=== PATIENT | female | born 1940 | race Caucasian/White ===

== ENCOUNTER → 2019-05-20 13:29 | Outpatient (CLI) | payer MEDICARE, SELFPAY ==
--- NOTE | ~2019-05-20 | XR_ITS ---
XR chest 2V DATE: 05/20/2019 13:47 INDICATION: Cough. Shortness of breath. TECHNIQUE: PA and lateral views COMPARISON: 03/07/2017 two view chest FINDINGS: Status post sternotomy. Normal heart size. Aortic calcification. No hilar or mediastinal mass lesion or lymphadenopathy. No pulmonary infiltrate or consolidation, pulmonary vascular congestion or pleural effusion or pneumo thorax. Surgical clips, right upper quadrant, consistent with cholecystectomy. Diffuse osteopenia. IMPRESSION: No active cardiopulmonary disease Reviewed, dictated and finalized at location B.
== END ==
PROVIDERS: PCP Family Medicine; Visit Provider Physician Assistant
DX: R05 Cough (principal); R06.02 Shortness of breath
CPT/HCPCS: 71046

== ENCOUNTER 2020-04-09 10:56 | Emergency (ER) | payer MEDICARE, SELFPAY ==
[2020-04-09 11:13] VITALS: BP 142/74; PULSE 79; RESP 18; TEMP 36.6; O2SAT 99
--- NOTE | 2020-04-09 13:28 | ED.EPISTAXIS ---
HPI - Epistaxis General Chief complaint: Epistaxis Stated complaint: nosebleed Time Seen by Provider: 04/09/20 12:45 Source: patient Mode of arrival: ambulatory Limitations: no limitations History of Present Illness HPI Narrative: Patient is a 79 year old female who presents for evaluation of epistaxis. She developed bleeding from her left nostril this morning at 8 am after blowing her nose. She has a distant history of epistaxis in the past in which she required cauterization. She takes aspirin 81 mg and plavix. She was just started on plavix last week after having a pacemaker placed and a TAVR. Related Data Home Medications Medication Instructions Recorded Confirmed albuterol sulfate 90 mcg/actuation 1 puff INHALATION Q4H PRN 05/09/19 05/20/19 aerosol inhaler aspirin 81 mg tablet,delayed 81 mg PO DAILY 05/09/19 05/20/19 release atorvastatin 40 mg tablet 40 mg PO DAILY 05/09/19 05/20/19 bimatoprost 0.01 % eye drops 1 drop EACH EYE QPM 05/09/19 05/20/19 calcium carbonate 500 mg calcium 500 mg PO DAILY 05/09/19 05/20/19 (1,250 mg) tablet cholecalciferol (vitamin D3) 125 5,000 unit PO DAILY 05/09/19 05/20/19 mcg (5,000 unit) capsule fluticasone 250 mcg-salmeterol 50 1 inhalation INHALATION BID 05/09/19 05/20/19 mcg/dose blistr powdr for inhalation folic acid 400 mcg tablet 0.4 mg PO DAILY 05/09/19 05/20/19 ipratropium 0.5 mg-albuterol 3 mg 3 ml INHALATION 6XD PRN ml 05/09/19 05/20/19 (2.5 mg base)/3 mL nebulization soln isosorbide mononitrate 60 mg 60 mg PO DAILY 05/09/19 05/20/19 tablet,extended release 24 hr montelukast 10 mg tablet 10 mg PO DAILY 05/09/19 05/20/19 ranolazine 1,000 mg 1,000 mg PO Q12H 05/09/19 05/20/19 tablet,extended release,12 hr umeclidinium 62.5 mcg/actuation 1 inhalation INHALATION DAILY 05/09/19 05/20/19 blister powder for inhalation brimonidine 0.1 % eye drops 1 drop EACH EYE Q12H ml 05/20/19 05/20/19 Allergies Allergy/AdvReac Type Severity Reaction Status Date / Time finasteride Allergy Unknown Unknown Verified 04/09/20 11:18 morphine Allergy Unknown Itching Verified 04/09/20 11:18 nifedipine Allergy Unknown Unknown Verified 04/09/20 11:18 phenylephrine Allergy Unknown Unknown Verified 04/09/20 11:18 prednisone Allergy Unknown Hives Verified 04/09/20 11:18 erythromycin base AdvReac Unknown Nausea And Verified 04/09/20 11:18 Vomiting Review of Systems Review of Systems: All systems reviewed & are unremarkable except as noted in HPI and below PMFSH Past Medical History Medical History (Updated 04/09/20 @ 14:59 by Karon Meredith MD) Breast pain, left Left breast mass Surgical History Surgical History History of appendectomy History of cholecystectomy S/P CABG (coronary artery bypass graft) Family History Family History Mother Hypertension Family history of Alzheimer's disease Sibling Hypertension Asthma Father Family history of lung cancer Social History Social History Smoking packs per day: 1.5 Smoking cigarettes per day: 30.0 Years smoked: 25 Smoking pack-years: 37.50 Smoking status: Former smoker Second hand tobacco smoke exposure: Yes Smoking end date: 03/12/94 Alcohol intake: current Substance use: never Substance use type: does not use Gender identity (if verbalized by the patient): Female Exam Const: General: no acute distress and alert Orientation/consciousness: patient oriented x3 HENMT: Head: normocephalic and atraumatic General nose exam: Other nasal findings present (bright red blood in left anterior nare, appears clear posteriorly) Face and sinus: face symmetric Mouth: Yes lip normal and Yes moist mucous membranes Eyes: EOM: EOMs intact bilaterally Chest: Other: bandage to right anterior chest, no bleeding Resp:
--- NOTE | 2020-04-09 13:33 | PC.NURSE ---
pt. does not have med list, does not know meds
[2020-04-09] MEDS: SILVER NITRATE (*SP) STICK 1 EACH TOPICAL (13:40)
[2020-04-09 13:43] LABS: Basophils Absolute Auto 0.1 K/mm3 (0.0-0.1); Basophils Percent Auto 0.4 % (0.2-1.2); Eosinophils Absolute Auto 0.3 K/mm3 (0-0.3); Eosinophils Percent Auto 2.2 % (0-4.4); Hematocrit 39.1 % (37.0-47.0); Hemoglobin 12.7 g/dL (12.0-15.0); Immature Granulocyte Absolute 0.11 K/mm3 (0.00-0.031); Immature Granulocyte Percent A 0.8 % (0-0.5); Lymphocytes Absolute Auto 1.85 K/mm3 (0.9-3.2); Lymphocytes Percent Auto 14.1 % (18.3-44.2); Mean Corpuscular HGB Conc 32.5 g/dl (32-36); Mean Corpuscular Hemoglobin 29.9 pg (26-34); Mean Platelet Volume 10.3 fl (7.4-10.4); Monocytes Percent Auto 7.8 % (2.6-8.5); Neutrophils Absolute Auto 9.8 K/mm3 (1.3-6.7); Neutrophils Percent Auto 74.7 % (45.5-73.1); Platelet Count Result 248 k/mm3 (150-375); Red Blood Count 4.25 M/mm3 (4.2-5.4); Red Cell Distribution Width 12.6 % (11.5-14.5); White Blood Count 13.1 K/mm3 (4.5-10.0)
[2020-04-09 13:57] LABS: INR 1.1; Prothrombin Time 14.4 Seconds (11.1-14.7)
[2020-04-09 13:58] LABS: Anion Gap 4 mmol/L (8-16); Blood Urea Nitrogen 16 mg/dL (7-17); Calcium 9.8 mg/dL (8.4-10.2); Carbon Dioxide 30 mmol/L (22-30); Chloride 104 mmol/L (98-107); Estimated CRCL calculation 36 ml/min; Estimated Glomerular Filt Rate > 60; Glucose 115 mg/dL (65-105); Potassium 4.7 mmol/L (3.4-5.0); Sodium 138 mmol/L (137-145)
[2020-04-09 13:58] LABS: Partial Thromboplastin Time 32.8 SECONDS (22.3-36.8)
[2020-04-09 15:26] VITALS: BP 138/88; PULSE 78; RESP 16
== END 2020-04-09 15:28 | disposition home or self-care (01) ==
PROVIDERS: Emergency Provider General Practice; Family Provider Family Medicine; PCP Family Medicine
DX: R04.0 Epistaxis (principal); I25.10 Atherosclerotic heart disease of native coronary artery without angina pectoris; Z95.0 Presence of cardiac pacemaker; Z95.1 Presence of aortocoronary bypass graft; Z79.02 Long term (current) use of antithrombotics/antiplatelets; Z79.82 Long term (current) use of aspirin; Z87.891 Personal history of nicotine dependence
CPT/HCPCS: 36415; 80048; 85025; 85610; 85730; 99283

== ENCOUNTER 2020-05-04 19:59 | Inpatient (IN) | payer MEDICARE, SELFPAY ==
[2020-05-04] VITALS (9 sets, daily range): BP systolic 110–145; BP diastolic 63–90; PULSE 83–95; RESP 19–31; TEMP 36.9; O2SAT 97–100
--- NOTE | ~2020-05-04 | XR_ITS ---
EXAMINATION: XR chest 1V portable DATE: 05/04/2020 20:52 INDICATION: Shortness of breath. TECHNIQUE: A single frontal view of the chest was obtained. COMPARISON: Chest 2 views 05/20/2019, CT abdomen and pelvis 08/08/2018 FINDINGS: There are lucencies in the upper lungs, consistent with emphysema. There is a diffuse inter stitial pattern, consistent with mild pulmonary edema. There are small pleural effusions. No pneumoth orax. The heart size is normal. Median sternotomy wires and mediastinal surgical clips are seen, like ly from prior coronary artery bypass grafting. There is a left chest wall pacer with leads in the rig ht atrium and right ventricle. IMPRESSION: 1. Mild pulmonary edema. 2. Emphysema. 3. Small pleural effusions. Reviewed, dictated and finalized at location A. LE REAMER OPERATOR
--- NOTE | ~2020-05-04 | CT_ITS ---
EXAMINATION: CTA chest PE protocol DATE: 05/04/2020 21:38 INDICATION: Shortness of breath. TECHNIQUE: Computed tomography angiography (CTA) of the chest was performed with 100 mL Omnipaque-350 intravenous contrast timed to evaluate the pulmonary arteries. Coronal maximum intensity projection 3D-reconstructions were created by the technologist. Automated exposure control and iterative reconst ruction technique were employed. The dose-length product was 554.65 mGy-cm. COMPARISON: CT abdomen and pelvis 08/08/2018 FINDINGS: There is severe emphysema. There are small pleural effusions. There is smooth septal thicke frieda in the lungs, consistent with mild pulmonary edema. There is mild atelectasis in the lungs. Ther e is a 1.8 cm nodule in right thyroid lobe. Cardiomegaly is noted. There are changes of aortic valve replacement. 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 There is no pulmonary embolus. Pne umobilia is noted, likely secondary to sphincterotomy. There are changes of cholecystectomy. There is an 8 mm hemorrhagic cyst in left kidney. There is a left chest wall pacer with leads in the right at rium and right ventricle. There is mild thoracic spondylosis. There is a benign bone island in T6 cj tebral body. IMPRESSION: 1. No pulmonary embolus. 2. Mild pulmonary edema. 3. Severe emphysema. 4. Small pleural effusions. 5. 1.8 cm thyroid nodule. Consider thyroid ultrasound if further evaluation is indicated given the pa tient's comorbidities and age. Reviewed, dictated and finalized at location A. OR OF NURSE ANESTHESIA IMPRESSION: 1. No pulmonary embolus. 2. Mild pulmonary edema. 3. Severe emphysema. 4. Small pleural effusions. 5. 1.8 cm thyroid nodule. Consider thyroid ultrasound if further evaluation is indicated given the patient's comorbidities and age.
--- NOTE | ~2020-05-04 | XR_ITS ---
EXAMINATION: XR abdomen/kub 1V DATE: 05/05/2020 14:20 INDICATION: Constipation. Nausea and vomiting. TECHNIQUE: A supine view of the abdomen on 2 radiographs was obtained. COMPARISON: Chest CT 05/04/2020 FINDINGS: There is a large volume of stool in the colon. The small bowel is normal in caliber. Surgic al clips in the right upper quadrant are likely from cholecystectomy. A pacer wire overlies right ray tricle of the heart. IMPRESSION: 1. Large volume of stool in the colon. Reviewed, dictated and finalized at location A. TION CONSULTANT
--- NOTE | 2020-05-04 19:55 | PC.NURSE ---
upon arrival RN is placing pt. on monitor. Pt repeatedly saying, Don't let me . I'm going to , please don't let me .
--- NOTE | 2020-05-04 20:03 | ECG_ITS ---
Measurements Intervals [place] Rate: 95 P: 47 MO: 150 QRS: 268 QRSD: 193 T: 83 QT: 429 QTc: 540 Interpretive Statements ELECTRONIC VENTRICULAR PACEMAKER CHANGES TO ATRIAL-SENSE ELECTRONIC VENTRICULAR PACEMAKER ATRIAL PREMATURE COMPLEX NO FURTHER INTERPRETATION IS POSSIBLE ATYPICAL ECG Electronically Signed On 05-05-2020 6:49:57 ELECTROLESS PLATER by Larry Hanley D.O.
--- NOTE | 2020-05-04 20:15 | PC.NURSE ---
Pt. refusing nasal swab for Flu. Pt. states it causes her to have severe nose bleeds.
--- NOTE | 2020-05-04 20:15 | PC.NURSE ---
RN asked for urine sample. pt. states she urinated before arrival and cannot go at this time.
[2020-05-04 20:26] LABS: Alveolar/Arterial O2 Gradient 143.5 mmHg; Base Excess ABG -4.9 mEq/l (+/-2.0); Device NASAL CANNULA; Fractional Inspired Oxygen 36 %; HCO3 ABG 18.5 mEq/l (22.0-26.0); Modified Allen's Test Pass; Oxygen Content ABG 14.9 %vol (16.0-22.0); Oxygen Saturation ABG 96.2 % (95.0-100.0); Oxyhemoglobin 94.2 % THb (90.0-100.0); PO2 ABG 79.5 mmHg (80.0-100.0); PO2 FiO2 Ratio Arterial Blood 2.21 %; Site Drawn LEFT RADIAL; Total Hemoglobin 11.2 g/dL (12.0-18.0); pH ABG 7.422 (7.350-7.450)
[2020-05-04 20:52] LABS: Basophils Absolute Auto 0.1 K/mm3 (0.0-0.1); Basophils Percent Auto 0.5 % (0.2-1.2); Eosinophils Absolute Auto 0.1 K/mm3 (0-0.3); Eosinophils Percent Auto 0.9 % (0-4.4); Hematocrit 32.7 % (37.0-47.0); Hemoglobin 10.1 g/dL (12.0-15.0); Immature Granulocyte Absolute 0.08 K/mm3 (0.00-0.031); Immature Granulocyte Percent A 0.6 % (0-0.5); Lymphocytes Absolute Auto 1.51 K/mm3 (0.9-3.2); Lymphocytes Percent Auto 10.8 % (18.3-44.2); Mean Corpuscular HGB Conc 30.9 g/dl (32-36); Mean Corpuscular Hemoglobin 29.3 pg (26-34); Mean Corpuscular Volume 94.8 fl (80-100); Neutrophils Absolute Auto 11.2 K/mm3 (1.3-6.7); Neutrophils Percent Auto 80.2 % (45.5-73.1); Platelet Count Result 287 k/mm3 (150-375); Red Blood Count 3.45 M/mm3 (4.2-5.4); Red Cell Distribution Width 13.5 % (11.5-14.5)
--- NOTE | 2020-05-04 21:00 | PC.NURSE ---
Pt. family member called out requesting Pt. receive glaucoma medication that is due in the evening. ERP made aware.
[2020-05-04 21:01] LABS: INR 1.1; Partial Thromboplastin Time 29.8 SECONDS (22.3-36.8)
[2020-05-04 21:04] LABS: D Dimer 1.02 ug/mL (<0.48)
[2020-05-04 21:07] LABS: Alanine Aminotransferase 17 U/L (4-35); Alkaline Phosphatase 89 U/L (38-126); Anion Gap 9 mmol/L (8-16); Aspartate Amino Transferase 25 U/L (14-36); Bilirubin,Total 0.9 mg/dL (0.2-1.3); Blood Urea Nitrogen 19 mg/dL (7-17); Calcium 9.1 mg/dL (8.4-10.2); Carbon Dioxide 25 mmol/L (22-30); Chloride 104 mmol/L (98-107); Estimated CRCL calculation 32 ml/min; Estimated Glomerular Filt Rate 48; Glucose 187 mg/dL (65-105); Potassium 4.5 mmol/L (3.4-5.0); Sodium 138 mmol/L (137-145)
--- NOTE | 2020-05-04 21:15 | PC.NURSE ---
pt. to CT. unable to obtain urine sample at this time.
--- NOTE | 2020-05-04 21:22 | ED.SOB ---
HPI - SOB/Dyspnea General Chief Complaint: Shortness of Breath/Dyspnea Stated Complaint: sob Time Seen by Provider: 05/04/20 20:02 Source: patient and family Limitations: no limitations History of Present Illness HPI Narrative: Patient 79 years old white female presents with shortness of breath over the last few days. Patient on chronic oxygen, 2 L/min, she denies any fever, chills, nausea, vomiting, chest pain. Patient on Plavix and aspirin. History of congestive heart failure, COPD, and pacemaker. Related Data Home Medications Medication Instructions Recorded Confirmed albuterol sulfate 90 mcg/actuation 1 puff INHALATION Q4H PRN 05/09/19 05/20/19 aerosol inhaler aspirin 81 mg tablet,delayed 81 mg PO DAILY 05/09/19 05/20/19 release atorvastatin 40 mg tablet 40 mg PO DAILY 05/09/19 05/20/19 bimatoprost 0.01 % eye drops 1 drop EACH EYE QPM 05/09/19 05/20/19 calcium carbonate 500 mg calcium 500 mg PO DAILY 05/09/19 05/20/19 (1,250 mg) tablet cholecalciferol (vitamin D3) 125 5,000 unit PO DAILY 05/09/19 05/20/19 mcg (5,000 unit) capsule fluticasone 250 mcg-salmeterol 50 1 inhalation INHALATION BID 05/09/19 05/20/19 mcg/dose blistr powdr for inhalation folic acid 400 mcg tablet 0.4 mg PO DAILY 05/09/19 05/20/19 ipratropium 0.5 mg-albuterol 3 mg 3 ml INHALATION 6XD PRN ml 05/09/19 05/20/19 (2.5 mg base)/3 mL nebulization soln isosorbide mononitrate 60 mg 60 mg PO DAILY 05/09/19 05/20/19 tablet,extended release 24 hr montelukast 10 mg tablet 10 mg PO DAILY 05/09/19 05/20/19 ranolazine 1,000 mg 1,000 mg PO Q12H 05/09/19 05/20/19 tablet,extended release,12 hr umeclidinium 62.5 mcg/actuation 1 inhalation INHALATION DAILY 05/09/19 05/20/19 blister powder for inhalation brimonidine 0.1 % eye drops 1 drop EACH EYE Q12H ml 05/20/19 05/20/19 Allergies Allergy/AdvReac Type Severity Reaction Status Date / Time finasteride Allergy Unknown Unknown Verified 05/04/20 23:24 morphine Allergy Unknown Itching Verified 05/04/20 23:24 nifedipine Allergy Unknown Unknown Verified 05/04/20 23:24 phenylephrine Allergy Unknown Unknown Verified 05/04/20 23:24 prednisone Allergy Unknown Hives Verified 05/04/20 23:24 erythromycin base AdvReac Unknown Nausea And Verified 05/04/20 23:24 Vomiting Review of Systems Review of Systems: Narrative: CONSTITUTIONAL: Denies fever, chills, or sweats. EYES: Denies visual changes, redness, or discharge. ENT: Denies rhinorrhea, congestion, sore throat, or otalgia. CARDIOVASCULAR: Denies chest pain, palpitations, or edema. RESPIRATORY: Shortness of breath GASTROINTESTINAL: Denies abdominal pain, nausea, vomiting, or diarrhea. GENITOURINARY: Denies dysuria or hematuria. SKIN: Denies rash or itching. MUSCULOSKELETAL: Denies back pain, joint pain, or myalgia. NEUROLOGIC: Denies headache, numbness, or weakness. PSYCHIATRIC: Denies anxiety or depression. [facility] Past Medical History Medical History (Updated 05/05/20 @ 00:32 by Eduardo Thomas MD) Breast pain, left Left breast mass Surgical History Surgical History History of appendectomy History of cholecystectomy S/P CABG (coronary artery bypass graft) Family History Family History Mother Hypertension Family history of Alzheimer's disease Sibling Hypertension Asthma Father Family history of lung cancer Social History Social History Smoking packs per day: 1.5 Smoking cigarettes per day: 30.0 Years smoked: 25 Smoking pack-years: 37.50 Smoking status: Former smoker Second hand tobacco smoke exposure: Yes Smoking end date: 03/12/94 Alcohol intake: current Substance use: never Substance use type: does not use Gender identity (if verbalized by the patient): Female Exam Narrative: Exam Narrative: General appearance: Well-developed, well
--- NOTE | 2020-05-04 21:30 | PC.NURSE ---
This RN was at intake desk, pt family member comes up and starts yelling I was on the call light 30 mins ago and no one came. She has dry eyes and needs her eye drops. You people stuck her in the corner and never came back. This RN states I will find your nurse Princess and let her know you'd like to see her and get eye drops. Pt stuck finger in this RN's face and said This place is ridiculous, and none of you are doing a thing! This RN states I am sorry about your wait. Pt family member states Not as sorry as your are gonna be. This RN then told pt family member I understand you are upset about the wait, but please do not threaten me. [facility] staff, and ambulated to pts room. carbon cutter made aware.
--- NOTE | 2020-05-04 21:30 | PC.NURSE ---
RN in to assess pt. Pt. family member states ?This is ridiculous. This is not how an ER runs. My used to work in this ER and let me tell you, this is not how it is ran.? RN apologized for any delays and informed family that there are critical Pt.'s that are in the emergency department and staff is working diligently to treat everyone.
[2020-05-04 21:39] LABS: NT Pro B Type Natriuretic Pept 8010 PG/ML (5-100); Troponin I 0.264 ng/mL (0.000-0.034)
--- NOTE | 2020-05-04 22:00 | PC.NURSE ---
RN in with pt. Pt. family member states One time we reported a hospital to [facility].
[2020-05-04] MEDS: BRIMONIDINE TARTRATE 0.1% 5 ML OPHTH DROPS 1 DROP EACH EYE (22:18)
[2020-05-04] MEDS: LATANOPROST 0.005% OP SOLN 2.5 ML BTL 1 DROP EACH EYE (22:18)
--- NOTE | 2020-05-04 22:48 | PC.NURSE ---
per verbal order from erp dr gasca - please cancel blood culture second set and also urine for this pt.
--- NOTE | 2020-05-04 23:00 | PC.NURSE ---
Addendum entered by Princess Sanchez RN 05/05/20 00:32: [id number] was the time of occurrence Original Note: RN in to administer P. at home medications for glaucoma. Pt family member states ?It?s about time. Her medication was due at seven pm.? RN educated pt.?s family member that medications have to be ordered by ERP and then verified by Pharmacy. While RN is administering medication family member continues to make comments about how long it took for the pt. to get medication. bilingual hr generalist made aware.
--- NOTE | 2020-05-04 23:00 | PC.NURSE ---
Prior to RN to administering Lasix pt. family member states How is she going to get to the bathroom with all of this stuff on her? RN informed the pt that a bedside commode can be placed into the room for pt. use. Pt. family member then states One time we reported a hospital to [facility] for not responding to a call omalley.
--- NOTE | 2020-05-04 23:00 | PC.NURSE ---
Pt. family member states I cannot believe you put her in this room all the way away from everyone else. Can't you put her somewhere else? RN informed family that this was the only bed that was available.
[2020-05-04] MEDS: FUROSEMIDE INJ 40 MG/4 ML VIAL IV PUSH (23:06)
--- NOTE | 2020-05-04 23:10 | PC.NURSE ---
Pt. family member states to this RN ?that girl over in the middle is useless. She doesn?t know anything and cannot do anything. I would fire her if I were you.?
--- NOTE | 2020-05-04 23:15 | PC.NURSE ---
Pt. family member asks where pt. will be admitted. RN informed them that the pt. will be admitted to IMU. Pt. family member states ?Is that the step down unit?? Pt. family member then states ?That?s the place where [family member] got no good care.?
[2020-05-05] VITALS (18 sets, daily range): BP systolic 107–144; BP diastolic 62–78; PULSE 53–123; RESP 16–28; TEMP 36.1–36.6; O2SAT 91–100; BMI 36.3
--- NOTE | 2020-05-05 | ECHO_ITS ---
Patient Info Name: Yola Interiano Age: 79 years : 1940 Gender: Female Ht: 62 in Wt: 198 lbs BSA: 2.03 m2 HR: 97 bpm BP: 138 / 70 mmHg Heart Rhythm: Paced Technical Quality: Good Exam Date: 05/05/2020 9:03 AM Exam Location: [facility] Pulmonary Exam Room: 200 Patient Status: Inpatient Admit Date: 05/04/2020 Staff Ordering Physician: Roselyn Coburn MD Medical Translator: Tiffanie Win RDCS Attending Provider: Warren Dumont MD Exam Type: CA echo doppler color flow Study Info Indications - HX/O CAD CABG TAVR PPM SOB ELEVATED TROPONINS Complete two-dimensional, color flow and Doppler transthoracic echocardiogram is performed. Summary 1. Complete two-dimensional, color flow and Doppler transthoracic echocardiogram is performed. 2. Left ventricular chamber dimension is moderately enlarged. 3. Left ventricular systolic function is moderately reduced, estimated at 35-40%. 4. There is hypokinesis of the apical, apical lateral, apical anterior, apical inferior, mid anterolateral, and mid inferolateral [place]. 5. Left ventricular septal wall motion is abnormal with septal motion related to pacing. 6. Left atrial chamber dimension is moderately enlarged. 7. There is trace regurgitation of the not well visualized prosthetic aortic valve. 8. No evidence of prosthetic valve stenosis with mean gradient of 11 mm Hg and a calculated valve area 1.6 cm2. Left Ventricle Left ventricular chamber dimension is moderately enlarged. Left ventricular systolic function is moderately reduced, estimated at 35-40%. There is no increased left ventricular wall thickness. Left ventricular septal wall motion is abnormal with septal motion related to pacing. The left ventricular diastolic function is grade II diastolic dysfunction. There is hypokinesis of the apical, apical lateral, apical anterior, apical inferior, mid anterolateral, and mid inferolateral [place]. Right Ventricle Right ventricular chamber dimension is normal. Right ventricular systolic function is normal. Linear artifact in right ventricle suggestive of catheter(s), pacemaker lead(s), or ICD lead(s). Left Atria Left atrial chamber dimension is moderately enlarged. Right Atria Right atrial chamber dimension is normal. Linear artifact in the right atrium suggestive of catheter(s), pacemaker lead(s), or ICD lead(s). Aortic Valve The prosthetic aortic low valve is not well visualized.. There is trace regurgitation of the not well visualized prosthetic aortic valve. No evidence of prosthetic valve stenosis with mean gradient of 11 mm Hg and a calculated valve area 1.6 cm2. Pulmonic Valve The pulmonic valve is not well visualized. Mitral Valve The mitral valve has thickened leaflets. There is moderate to severe mitral valve regurgitation. The mitral valve annulus is severely calcified. Tricuspid Valve The tricuspid valve leaflets are normal. There is trace tricuspid valve regurgitation. Moderate pulmonary hypertension, estimated pulmonary arterial systolic pressure is 49 mmHg. Pericardium/Pleural The pericardium appears epicardial fat pad. There is no pericardial effusion. Inferior Vena Cava Normal inferior vena cava with >50% collapse upon inspiration consistent with normal right atrial pressure, 5 mmHg. Aorta The aortic root size at the sinus of Valsalva is normal. Left Ventricular Outflow Tract Name
--- NOTE | 2020-05-05 01:06 | ADMGEN ---
This patient, Yola Interiano, was admitted to IMU Room 200-01. Patient/family oriented to hospital policies and general routines including ID bracelet, bed and alarms, visiting hours, pain management, procedures, bathroom and other care routines, personal items, smoking policy, room service/diet, and visiting hours. Information on how to activate the Rapid Response Team has been discussed. Patient/Family are encouraged to report perceived risks to care and to ask questions if they do not understand what they are told or what they should do. Report from Princess STARKEY
[2020-05-05 01:44] LABS: Troponin I 0.285 ng/mL (0.000-0.034)
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
[2020-05-05] MEDS: BRIMONIDINE TARTRATE 0.1% 5 ML OPHTH DROPS 1 DROP EACH EYE ×2 (05:52→20:28)
[2020-05-05 06:44] LABS: Troponin I 0.589 ng/mL (0.000-0.034)
[2020-05-05 06:48] LABS: Anion Gap 11 mmol/L (8-16); Blood Urea Nitrogen 18 mg/dL (7-17); Calcium 8.8 mg/dL (8.4-10.2); Carbon Dioxide 24 mmol/L (22-30); Chloride 104 mmol/L (98-107); Estimated CRCL calculation 39 ml/min; Estimated Glomerular Filt Rate 48; Glucose 209 mg/dL (65-105); Potassium 4.2 mmol/L (3.4-5.0); Sodium 139 mmol/L (137-145)
[2020-05-05] MEDS: FOLIC ACID 1 MG TABLET PO (09:49)
[2020-05-05] MEDS: CHOLECALCIFEROL 1,000 UNITS TABLET 5000 UNITS PO (09:49)
[2020-05-05] MEDS: RANOLAZINE 500 MG TAB.ER.12H 1000 MG PO ×2 (09:50→20:29)
[2020-05-05] MEDS: CLOPIDOGREL BISULFATE 75 MG TABLET PO (09:50)
[2020-05-05] MEDS: PANTOPRAZOLE SOD SESQUIHYDRATE 20 MG TAB PO (09:50)
[2020-05-05] MEDS: ASPIRIN 81 MG ENTERIC TABLET PO (09:50)
[2020-05-05] MEDS: CALCIUM CARBONATE (OSCAL) 500 MG TABLET PO (09:50)
[2020-05-05] MEDS: MONTELUKAST SODIUM 10 MG TABLET PO (09:50)
[2020-05-05] MEDS: ATORVASTATIN 40 MG TABLET PO (09:50)
[2020-05-05] MEDS: ISOSORBIDE MONONITRATE 60 MG TAB.ER.24H PO (09:50)
[2020-05-05] MEDS: FUROSEMIDE INJ 40 MG/4 ML VIAL 20 MG IV PUSH ×2 (09:51→20:28)
[2020-05-05] MEDS: CITALOPRAM HYDROBROMIDE 5 MG TABLET PO (09:51)
[2020-05-05] MEDS: lisinopriL 10 MG TABLET PO (11:43)
[2020-05-05] MEDS: ACETAMINOPHEN 325 MG TABLET 650 MG PO (12:03)
[2020-05-05] MEDS: ONDANSETRON INJ 4 MG/2 ML VIAL IV PUSH (13:02)
--- NOTE | 2020-05-05 13:44 | PM.CNCAR ---
Assessment and Plan Assessment and plan (1) Congestive heart failure: Qualifiers: Heart failure chronicity: acute on chronic Heart failure type: unspecified Qualified Code(s): I50.9 - Heart failure, unspecified Code(s): I50.9 - Heart failure, unspecified Status: Acute Assessment and Plan: Mild decompensated systolic and diastolic heart failure. History of LV dysfunction worse on this echo compared to prior assessment now 35-40%. BP reasonably controlled. Cannot exclude ischemic contribution although no anginal symptoms. [facility] 01/02/20 as above with severe [place] CAD with WEB PRODUCTION ASSISTANT of LAD and occluded bypass grafts without significant targets for revascularization aside from higher risk intervention to WEB PRODUCTION ASSISTANT of LAD which would not be attempted at this institution. nonetheless, cardiac status complicated by chronic hypoxic lung disease, moderate to severe mitral regurgitation and moderate pulmonary hypertension. Mitral valve pathology has been a known for some time. This will need to be further addressed as an outpatient. TAVR function preserved on echocardiogram this hospitalization. LV dysfunction likely too soon to be caused by persistent RV pacing but remains a consideration in the LEs. Continue IV diuresis today, accurate input and output, daily weight. Monitor renal function and electrolytes closely. If no significant clinical response to therapy if further invasive ischemic workup planned patient will be best transferred to [facility] with surgical backup. I do not anticipate this will be necessary at this juncture Discussed at length concern for progressive LV dysfunction and potential contributions in this regard. Patient has moderate to severe MR if further workup or intervention for this issue is required this will need to be performed as an outpatient and/or at another institution such as , [facility] or [place]. I spent 75 minutes in the care of this patient including at bedside, review of outside records, electronic record/chart review. (2) Elevated troponin: Code(s): R77.8 - Other specified abnormalities of plasma proteins Status: Acute Assessment and Plan: Mild troponin elevation without clear anginal symptoms in the setting of mild CHF. Continue aggressive medical management dual antiplatelet therapy, statin. Add Coreg as tolerated for CV support of CAD and cardiomyopathy. Repeat troponin for trend. Will give enoxaparin 1 milligram/kilogram subcutaneous for now. (3) CAD (coronary artery disease): Code(s): I25.10 - Atherosclerotic heart disease of [place] coronary artery without angina pectoris Status: Acute Assessment and Plan: as above. (4) Status post transcatheter aortic valve replacement (TAVR) using bioprosthesis: Code(s): Z95.3 - Presence of xenogenic heart valve Status: Acute Assessment and Plan: Normal prosthetic valve function by echocardiogram. Prophylactic antibiotics prior to any surgical procedures. (5) Pacemaker: Code(s): Z95.0 - Presence of cardiac pacemaker Status: Acute Assessment and Plan: Persistent RV pacing. As above. Recently placed 1 month ago for complete heart block post TAVR. History of Present Illness History of Present Illness Consult date/time: Date of service: 05/05/20 13:44 Cardiology consultation at the request of Dr Marte for our opinion regarding shortness of breath, CHF and elevated troponin. Requesting physician: Roselyn Coburn MD Consult reason: congestive heart failure Reason For Visit: CHF, Elevated Troponin, COPD Narrative: patient is a very pleasant yet complicated 79-year-old female with a past medical history significant for TD/CPAP, HTN, COPD on home O2CAD status post CABG in 1999 SVG to distal LAD, CAGE to proximal LAD, history of transmyocardial laser revascularization to the lateral posterolateral [place], chronic angina, history of is
--- NOTE | 2020-05-05 16:31 | PM.IMHP ---
H&P: HPI History of Present Illness Date/Time: 05/05/20 16:31 Chief Complaint: Shortness of breath Narrative: Yola Interiano is a 79 year old female with history coronary artery disease CABG, ischemic cardiomyopathy, patient with complete heart block status post s/p PPM and TVAR, patient presented emergency department with a complaint shortness of breath and elevated tropes, patient was seen by crematory attendant and had a cardiac echo today which showed patient has moderately reduced systolic dysfunction with ejection fraction of 35%, cardiology's recommendation to diurese the patient if there is no significant improvement and patient will be transferred to tertiary care for further evaluation, patient also complains of left-sided abdominal KUB showed constipation will get the patient Colace and MiraLax will continue to monitor will have a PT OT evaluate the patient. Review of Systems Review of Systems: All systems reviewed & are unremarkable except as noted in HPI and below PMFSH Past Medical History Medical History (Updated 05/05/20 @ 16:48 by Roselyn Coburn MD) Acute on chronic systolic (congestive) heart failure Breast pain, left CAD (coronary artery disease) Chronic obstructive pulmonary disease Hyperlipidemia Left breast mass Mitral regurgitation TD (obstructive sleep apnea) Pacemaker Surgical History Surgical History History of appendectomy History of cholecystectomy S/P CABG (coronary artery bypass graft) Status post transcatheter aortic valve replacement (TAVR) using bioprosthesis Family History Family History Mother Hypertension Family history of Alzheimer's disease Sibling Hypertension Asthma Father Family history of lung cancer Social History Social History Smoking packs per day: 1 Smoking cigarettes per day: 20.0 Years smoked: 31 Smoking pack-years: 31.00 Smoking status: Former smoker Tobacco type: cigarettes Second hand tobacco smoke exposure: Yes Smoking end date: 03/12/94 Alcohol intake: never Substance use: never Substance use type: does not use Gender identity (if verbalized by the patient): Female Spiritual care concerns: No Meds Home Medications and Allergies Home Medications Medication Instructions Recorded Confirmed Type lisinopril 10 mg tablet 10 mg PO DAILY #90 tablet 03/20/19 05/05/20 Rx albuterol sulfate 90 mcg/actuation 1 puff INHALATION Q4H PRN 05/09/19 05/05/20 History aerosol inhaler aspirin 81 mg tablet,delayed 81 mg PO DAILY 05/09/19 05/05/20 History release atorvastatin 40 mg tablet 40 mg PO DAILY 05/09/19 05/05/20 History bimatoprost 0.01 % eye drops 1 drop EACH EYE QPM 05/09/19 05/05/20 History calcium carbonate 500 mg calcium 500 mg PO DAILY 05/09/19 05/05/20 History (1,250 mg) tablet cholecalciferol (vitamin D3) 125 5,000 unit PO DAILY 05/09/19 05/05/20 History mcg (5,000 unit) capsule fluticasone 250 mcg-salmeterol 50 1 inhalation INHALATION BID 05/09/19 05/05/20 History mcg/dose blistr powdr for inhalation folic acid 400 mcg tablet 1 mg PO DAILY 05/09/19 05/05/20 History ipratropium 0.5 mg-albuterol 3 mg 3 ml INHALATION 6XD PRN ml 05/09/19 05/05/20 History (2.5 mg base)/3 mL nebulization soln isosorbide mononitrate 60 mg 60 mg PO DAILY 05/09/19 05/05/20 History tablet,extended release 24 hr montelukast 10 mg tablet 10 mg PO DAILY 05/09/19 05/05/20 History ranolazine 1,000 mg 1,000 mg PO Q12H 05/09/19 05/05/20 History tablet,extended release,12 hr umeclidinium 62.5 mcg/actuation 1 inhalation INHALATION DAILY 05/09/19 05/05/20 History blister powder for inhalation brimonidine 0.1 % eye drops 1 drop EACH EYE Q12H ml 05/20/19 05/05/20 History citalopram 10 mg tablet See Rx Instructions .ROUTE 09/09/19 05/05/20 Rx .COMPLEX #45 tablet
[2020-05-05] MEDS: polyethylene glycoL 3350 17 GM POWD.PACK PO (17:28)
[2020-05-05] MEDS: FLUTICASONE/SALMETEROL 115-21 MCG INHALER 1 PUFF 2 PUFF INHALATION (20:16)
[2020-05-05] MEDS: ENOXAPARIN 100 MG/ML SYRINGE 90 MG SUB-Q (20:28)
[2020-05-05] MEDS: LATANOPROST 0.005% OP SOLN 2.5 ML BTL 1 DROP EACH EYE (20:28)
[2020-05-05] MEDS: DOCUSATE SODIUM 100 MG CAPSULE PO (20:29)
[2020-05-05] MEDS: carvediloL 3.125 MG TABLET PO (20:29)
[2020-05-05] MEDS: clonazePAM (*CRX) 0.5 MG TABLET 1 MG PO (20:34)
[2020-05-06] VITALS (17 sets, daily range): BP systolic 90–98; BP diastolic 49–60; PULSE 67–104; RESP 18–22; TEMP 36.1–36.4; O2SAT 96–100
[2020-05-06] MEDS: ONDANSETRON INJ 4 MG/2 ML VIAL IV PUSH ×2 (00:03→15:29)
[2020-05-06 08:34] LABS: Basophils Percent Auto 0.2 % (0.2-1.2); Eosinophils Absolute Auto 0.1 K/mm3 (0-0.3); Eosinophils Percent Auto 0.3 % (0-4.4); Hematocrit 30.8 % (37.0-47.0); Hemoglobin 9.7 g/dL (12.0-15.0); Immature Granulocyte Absolute 0.11 K/mm3 (0.00-0.031); Immature Granulocyte Percent A 0.6 % (0-0.5); Lymphocytes Percent Auto 8.6 % (18.3-44.2); Mean Corpuscular HGB Conc 31.5 g/dl (32-36); Mean Corpuscular Volume 92.2 fl (80-100); Mean Platelet Volume 10.1 fl (7.4-10.4); Monocytes Absolute Auto 1.6 K/mm3 (0.1-0.6); Monocytes Percent Auto 9.3 % (2.6-8.5); Neutrophils Absolute Auto 14.2 K/mm3 (1.3-6.7); Platelet Count Result 265 k/mm3 (150-375); Red Blood Count 3.34 M/mm3 (4.2-5.4); Red Cell Distribution Width 13.5 % (11.5-14.5); White Blood Count 17.5 K/mm3 (4.5-10.0)
[2020-05-06 08:48] LABS: Anion Gap 6 mmol/L (8-16); Blood Urea Nitrogen 22 mg/dL (7-17); Calcium 8.2 mg/dL (8.4-10.2); Carbon Dioxide 30 mmol/L (22-30); Chloride 102 mmol/L (98-107); Estimated CRCL calculation 24 ml/min; Estimated Glomerular Filt Rate 36; Glucose 147 mg/dL (65-105); Potassium 3.8 mmol/L (3.4-5.0); Sodium 138 mmol/L (137-145)
[2020-05-06] MEDS: polyethylene glycoL 3350 17 GM POWD.PACK PO (08:52)
[2020-05-06] MEDS: BRIMONIDINE TARTRATE 0.1% 5 ML OPHTH DROPS 1 DROP EACH EYE ×2 (08:53→19:52)
[2020-05-06] MEDS: CHOLECALCIFEROL 1,000 UNITS TABLET 5000 UNITS PO (08:53)
[2020-05-06] MEDS: CITALOPRAM HYDROBROMIDE 5 MG TABLET PO (08:54)
[2020-05-06] MEDS: FOLIC ACID 1 MG TABLET PO (08:54)
[2020-05-06] MEDS: RANOLAZINE 500 MG TAB.ER.12H 1000 MG PO (08:54)
[2020-05-06] MEDS: CLOPIDOGREL BISULFATE 75 MG TABLET PO (08:54)
[2020-05-06] MEDS: DOCUSATE SODIUM 100 MG CAPSULE PO (08:54)
[2020-05-06] MEDS: CALCIUM CARBONATE (OSCAL) 500 MG TABLET PO (08:55)
[2020-05-06] MEDS: MONTELUKAST SODIUM 10 MG TABLET PO (08:55)
[2020-05-06] MEDS: ASPIRIN 81 MG ENTERIC TABLET PO (08:55)
[2020-05-06] MEDS: PANTOPRAZOLE SOD SESQUIHYDRATE 20 MG TAB PO (08:55)
[2020-05-06] MEDS: ATORVASTATIN 40 MG TABLET PO (08:55)
[2020-05-06] MEDS: FLUTICASONE/SALMETEROL 115-21 MCG INHALER 1 PUFF 2 PUFF INHALATION ×2 (08:59→19:50)
[2020-05-06 11:18] LABS: Magnesium 1.9 mg/dL (1.6-2.3)
--- NOTE | 2020-05-06 11:26 | PM.IMPN ---
Progress Note: A&P Assessment and Plan (1) Acute on chronic systolic (congestive) heart failure: Code(s): I50.23 - Acute on chronic systolic (congestive) heart failure Status: Acute Assessment and Plan: 05/06/20 11:26 Yola Interiano is a 79 year old female with history coronary artery disease CABG, ischemic cardiomyopathy, patient with complete heart block status post s/p PPM and TVAR, patient presented emergency department with a complaint shortness of breath and elevated tropes, patient was seen by business banking sales assistant and had a cardiac echo today which showed patient has moderately reduced systolic dysfunction with ejection fraction of 35%, cardiology's recommendation to diurese the patient if there is no significant improvement and patient will be transferred to tertiary care for further evaluation, patient also complains of left-sided abdominal KUB showed constipation will get the patient Colace and MiraLax will continue to monitor will have a PT OT evaluate the patient. 05/06 patient is being diuresed her urine output is improved and clinically patient states not as short of breath as yesterday, her creatinine is slightly rising, she denies any chest pain or palpitation, her abdominal pain is also improved as patient had 2 BMs last night, patient be seen by Cardiology and further recommendation to follow (2) Chronic obstructive pulmonary disease: Code(s): J44.9 - Chronic obstructive pulmonary disease, unspecified Status: Acute Assessment and Plan: Patient is clinically stable most of her symptoms are stemming from exacerbation of CHF (3) Elevated troponin: Code(s): R77.8 - Other specified abnormalities of plasma proteins Status: Acute Assessment and Plan: Patient with history of CABG seen by cardiac and further recommendation to follow Subjective Date/time seen: 05/06/20 11:26 Yola Interiano is a 79 year old female with history coronary artery disease CABG, ischemic cardiomyopathy, patient with complete heart block status post s/p PPM and TVAR, patient presented emergency department with a complaint shortness of breath and elevated tropes, patient was seen by business banking sales assistant and had a cardiac echo today which showed patient has moderately reduced systolic dysfunction with ejection fraction of 35%, cardiology's recommendation to diurese the patient if there is no significant improvement and patient will be transferred to tertiary care for further evaluation, patient also complains of left-sided abdominal KUB showed constipation will get the patient Colace and MiraLax will continue to monitor will have a PT OT evaluate the patient. 05/06 patient is being diuresed her urine output is improved and clinically patient states not as short of breath as yesterday, her creatinine is slightly rising, she denies any chest pain or palpitation, her abdominal pain is also improved as patient had 2 BMs last night, patient be seen by Cardiology and further recommendation to follow Review of Systems Review of Systems: All systems reviewed & are unremarkable except as noted in HPI and below Exam Narrative: Exam Narrative: Elderly frail Patient is comfortable, NAD HEENT: eyes are clear and none icteric LUNGS: Bilateral fair air entry with rales and rhonchi HEART: RR S1S2 ABD: BS+, patient is tender in left upper quadrant Lower extremities: no edema SKIN: nonjaundiced Neuro: grossly intact. Objective Data Vital Signs Vital Signs: Vital Signs - 24 hr 05/05/20 12:00 05/05/20 14:00 05/05/20 16:00 Temperature 96.9 F L 97.2 F L Pulse Rate 88 84 78 Respiratory Rate 22 H 20 Blood Pressure 130/67 125/62 Pulse Oximetry 98 98 05/05/20 18:00 05/05/20 19:38 05/05/20 20:00 Temperature 97.3 F L Pulse Rate 85 123 H 103 H Respiratory Rate 28 H Blood Pressure 133/72 Pulse Oximetry 100 98 05/05/20 20:20 05/05/20 20:29 05/05/20 22:00 Temperature Pulse Rate 96 93 105 H Respirat
[2020-05-06] MEDS: SODIUM CHLORIDE 0.9% IV 250 ML 500 ML IV CONT (13:25)
--- NOTE | 2020-05-06 14:17 | PM.PNCARD ---
Progress Note: A&P Assessment and Plan (1) Congestive heart failure: Qualifiers: Heart failure chronicity: acute on chronic Heart failure type: unspecified Qualified Code(s): I50.9 - Heart failure, unspecified Code(s): I50.9 - Heart failure, unspecified Status: Acute Assessment and Plan: Mild decompensated systolic and diastolic heart failure. History of LV dysfunction worse on this echo compared to prior assessment now 35-40%. BP reasonably controlled. Cannot exclude ischemic contribution although no anginal symptoms. [facility] 01/02/20 as above with severe [place] CAD with ACUPRESSURIST of LAD and occluded CAGE to LAD, patent SVG to d LAD on CT coronary angiogram. without significant targets for revascularization aside from higher risk intervention to ACUPRESSURIST of LAD which would not be attempted at this institution. nonetheless, cardiac status complicated by chronic hypoxic lung disease, moderate to severe mitral regurgitation and moderate pulmonary hypertension. Mitral valve pathology has been a known for some time. This will need to be further addressed as an outpatient. TAVR function preserved on echocardiogram this hospitalization. LV dysfunction I feel is likely the cause given mild troponin elevation with significant change in LV function. Furthermore, given her LV dysfunction and expected persistent RV pacing she will not do well in the future and would benefit with upgrade her pacemaker to biventricular device. Discussed at length with the patient, her daughter at bedside, Dr. Sauceda, and Dr. Villalobos. Dr. Villalobos reviewed her record and coronary angiogram in [facility] and did not feel that repeat study given her risks at this time would be of benefit to her as he did not see disease which would likely warrant intervention. I explained the importance of ruling out infection given elevated white blood cell count, lower BP prior to in a pacemaker upgrade. We also discussed that this procedure cannot be performed at [facility] and would require transfer to outside facility such as [facility] with electrophysiology consultation. They verbalized understanding and agreed to transfer today. Discussed this case with Dr. Coburn as well and Dr. Caballero at [facility]. Patient is very complicated with multiple comorbidities and would best be served with transfer to the hospitalist service consultation from cardiology and electrophysiology. Her heart failure is resolved, baseline home O2 at 2 L. I spent 62 minutes in the care of this patient including at bedside, review of outside records, electronic record/chart review. (2) Elevated troponin: Code(s): R77.8 - Other specified abnormalities of plasma proteins Status: Acute Assessment and Plan: Mild troponin elevation peaking at 1.550 without clear anginal symptoms in the setting of mild CHF. Continue aggressive medical management dual antiplatelet therapy, statin. Coreg held due to hypotension which was added in support of her cardiomyopathy. As above. Given acute on chronic renal insufficiency, comorbidities and less likely explanation for LV dysfunction will not pursue coronary angiogram at this time. (3) CAD (coronary artery disease): Code(s): I25.10 - Atherosclerotic heart disease of [place] coronary artery without angina pectoris Status: Acute Assessment and Plan: as above. (4) Status post transcatheter aortic valve replacement (TAVR) using bioprosthesis: Code(s): Z95.3 - Presence of xenogenic heart valve Status: Acute Assessment and Plan: Normal prosthetic valve function by echocardiogram. Prophylactic antibiotics prior to any surgical procedures. (5) Pacemaker: Code(s): Z95.0 - Presence of cardiac pacemaker Status: Acute Assessment and Plan: Persistent RV pacing unfortunately likely cause for LV dysfunction. As above. Recently placed 1 month ago for complete heart b
--- NOTE | 2020-05-06 15:38 | PM.TDS ---
Transfer Discharge Sum: Prov Provider Date of admission: 05/05/20 15:44 Primary care physician: Mauro Blackburn MD Admitting clinician: Gage Dumont MD Consults: 05/04/20 22:37 Consult to Physician Routine Comment: Consulting Provider: Shaggy Sauceda Reason for consultation: CHF, elevated troponin Has provider been notified: Yes DS: Admitting Diagnosis Admitting Diagnosis Admitting Diagnosis: Chief Complaint: Shortness of breath DS: Discharge Diagnosis Discharge Diagnosis (1) Acute on chronic systolic (congestive) heart failure: Code(s): I50.23 - Acute on chronic systolic (congestive) heart failure Status: Acute Assessment and Plan: 05/06/20 11:26 Yola Interiano is a 79 year old female with history coronary artery disease CABG, ischemic cardiomyopathy, patient with complete heart block status post s/p PPM and TVAR, patient presented emergency department with a complaint shortness of breath and elevated tropes, patient was seen by reference archivist and had a cardiac echo today which showed patient has moderately reduced systolic dysfunction with ejection fraction of 35%, cardiology's recommendation to diurese the patient if there is no significant improvement and patient will be transferred to tertiary care for further evaluation, patient also complains of left-sided abdominal KUB showed constipation will get the patient Colace and MiraLax will continue to monitor will have a PT OT evaluate the patient. 05/06 patient is being diuresed her urine output is improved and clinically patient states not as short of breath as yesterday, her creatinine is slightly rising, she denies any chest pain or palpitation, her abdominal pain is also improved as patient had 2 BMs last night, patient be seen by Cardiology and further recommendation to follow (2) Chronic obstructive pulmonary disease: Code(s): J44.9 - Chronic obstructive pulmonary disease, unspecified Status: Acute Assessment and Plan: Patient is clinically stable most of her symptoms are stemming from exacerbation of CHF (3) Elevated troponin: Code(s): R77.8 - Other specified abnormalities of plasma proteins Status: Acute Assessment and Plan: Patient with history of CABG seen by cardiac and further recommendation to follow Transfer Discharge Sum: Med Medications Active and Home Medications: Home Medications lisinopril 10 mg tablet 10 mg PO DAILY #90 tablet 03/20/19 [Rx Confirmed 05/05/20] albuterol sulfate 90 mcg/actuation aerosol inhaler 1 puff INHALATION Q4H PRN 05/09/19 [History Confirmed 05/05/20] aspirin 81 mg tablet,delayed release 81 mg PO DAILY 05/09/19 [History Confirmed 05/05/20] atorvastatin 40 mg tablet 40 mg PO DAILY 05/09/19 [History Confirmed 05/05/20] bimatoprost 0.01 % eye drops 1 drop EACH EYE QPM 05/09/19 [History Confirmed 05/05/20] calcium carbonate 500 mg calcium (1,250 mg) tablet 500 mg PO DAILY 05/09/19 [History Confirmed 05/05/20] cholecalciferol (vitamin D3) 125 mcg (5,000 unit) capsule 5,000 unit PO DAILY 05/09/19 [History Confirmed 05/05/20] fluticasone 250 mcg-salmeterol 50 mcg/dose blistr powdr for inhalation 1 inhalation INHALATION BID 05/09/19 [History Confirmed 05/05/20] folic acid 400 mcg tablet 1 mg PO DAILY 05/09/19 [History Confirmed 05/05/20] ipratropium 0.5 mg-albuterol 3 mg (2.5 mg base)/3 mL nebulization soln 3 ml INHALATION 6XD PRN ml 05/09/19 [History Confirmed 05/05/20] isosorbide mononitrate 60 mg tablet,extended release 24 hr 60 mg PO DAILY 05/09/19 [History Confirmed 05/05/20] montelukast 10 mg tablet 10 mg PO DAILY 05/09/19 [History Confirmed 05/05/20] ranolazine 1,000 mg tablet,extended release,12 hr 1,000 mg PO Q12H 05/09/19 [History Confirmed 05/05/20] umeclidinium 62.5 mcg/actuation blister powder for inhalation 1 inhalation INHALATION DAILY 05/09/19 [History Confirmed 05/05/20] brimonidine 0.1 % eye drops 1 drop EACH EYE Q12H ml 05/20/19 [History Confirmed 05/05
[2020-05-06] MEDS: LATANOPROST 0.005% OP SOLN 2.5 ML BTL 1 DROP EACH EYE (19:53)
== END 2020-05-06 20:24 | disposition short-term general hospital (02) | DRG 292 ==
LOC: ANHED 20:28 → ANHIMU 05-05 00:15
PROVIDERS: Internal Medicine Cardiovascular Disease; Physician Assistant; Admitting Provider Internal Medicine; Emergency Provider Emergency Medicine; PCP Family Medicine; Visit Provider Family Medicine
DX: I11.0 Hypertensive heart disease with heart failure (principal); I44.2 Atrioventricular block, complete; I50.23 Acute on chronic systolic (congestive) heart failure; I27.20 Pulmonary hypertension, unspecified; J44.9 Chronic obstructive pulmonary disease, unspecified; R77.8 Other specified abnormalities of plasma proteins; I25.10 Atherosclerotic heart disease of native coronary artery without angina pectoris; E78.5 Hyperlipidemia, unspecified; G47.33 Obstructive sleep apnea (adult) (pediatric); I25.5 Ischemic cardiomyopathy; I34.0 Nonrheumatic mitral (valve) insufficiency; Z79.82 Long term (current) use of aspirin; Z87.891 Personal history of nicotine dependence; Z95.0 Presence of cardiac pacemaker; Z95.1 Presence of aortocoronary bypass graft; Z95.3 Presence of xenogenic heart valve
CPT/HCPCS: 36415; 36600; 71045; 71275; 74018; 80048; 80053; 82805; 83735; 83880; 84484; 85025; 85380; 85610; 85730; 87040; 93005; 93306; 94640; 96374; 96375; 99285; A9270; C8929; G0378; J1650; J1940; J2405; J7050; Q9967

== ENCOUNTER 2020-06-11 15:09 | Observation (INO) | payer MEDICARE, SELFPAY ==
[2020-06-11] VITALS (10 sets, daily range): BP systolic 82–131; BP diastolic 62–90; PULSE 64–92; RESP 16–20; TEMP 35.8–36.7; O2SAT 96–100; BMI 23.7
--- NOTE | ~2020-06-11 | CT_ITS ---
EXAMINATION: CT abdomen pelvis wo con DATE: 06/11/2020 16:50 INDICATION: Vomiting. TECHNIQUE: Computed tomography (CT) of the abdomen and pelvis was performed without intravenous contr ast. Automated exposure control and iterative reconstruction technique were employed. The dose-length product was 306.27 mGy-cm. COMPARISON: CT abdomen and pelvis 08/08/2018, chest CT 05/04/2020 FINDINGS: The visualized portions of the lung bases demonstrate emphysema and mild atelectasis. There is a small right pleural effusion. Cardiomegaly is noted. There are changes of coronary artery bypas s grafting. There are pacer wires in right atrium and right ventricle. No pericardial effusion. Pneum obilia is noted, likely secondary to sphincterotomy. There are changes of cholecystectomy. The spleen , pancreas, adrenal glands, and right kidney are normal. There are hemorrhagic cysts in left kidney m easuring up to 9 mm. There is diverticulosis of the colon without evidence of diverticulitis. There a re no dilated loops of bowel. The appendix is not visualized. There are no pathologically enlarged ly mph nodes. There is no free intraperitoneal fluid. There is lumbar levoscoliosis and mild spondylosis . IMPRESSION: 1. Small right pleural effusion. Reviewed, dictated and finalized at location A.
--- NOTE | ~2020-06-11 | US_ITS ---
US renal BI DATE: 06/12/2020 13:54 INDICATION: Acute renal insufficiency TECHNIQUE: Real-time imaging of the kidneys COMPARISON: 06/11/[address] abdomen pelvis FINDINGS: The right kidney measures approximately 10.1 cm length, the left kidney 9.8 cm. No renal sp marilyn occupying mass lesion or hydronephrosis is detected. The urinary bladder is unremarkable. IMPRESSION: No significant abnormality; no evidence of hydronephrosis of either kidney Reviewed, dictated and finalized at Location [facility]. Reviewed, dictated and finalized at location A.
[2020-06-11 16:08] LABS: Basophils Percent Auto 0.2 % (0.2-1.2); Eosinophils Percent Auto 0.2 % (0-4.4); Hematocrit 29.6 % (37.0-47.0); Hemoglobin 9.1 g/dL (12.0-15.0); Immature Granulocyte Absolute 0.09 K/mm3 (0.00-0.031); Immature Granulocyte Percent A 0.9 % (0-0.5); Lymphocytes Absolute Auto 1.63 K/mm3 (0.9-3.2); Lymphocytes Percent Auto 16.3 % (18.3-44.2); Mean Corpuscular HGB Conc 30.7 g/dl (32-36); Mean Corpuscular Hemoglobin 25.6 pg (26-34); Mean Corpuscular Volume 83.1 fl (80-100); Mean Platelet Volume 11.4 fl (7.4-10.4); Monocytes Absolute Auto 1.2 K/mm3 (0.1-0.6); Monocytes Percent Auto 11.9 % (2.6-8.5); Neutrophils Percent Auto 70.5 % (45.5-73.1); Platelet Count Result 214 k/mm3 (150-375); Red Blood Count 3.56 M/mm3 (4.2-5.4); Red Cell Distribution Width 15.2 % (11.5-14.5)
[2020-06-11 16:19] LABS: Anion Gap 12 mmol/L (8-16); Blood Urea Nitrogen 30 mg/dL (7-17); Calcium 9.2 mg/dL (8.4-10.2); Carbon Dioxide 26 mmol/L (22-30); Chloride 94 mmol/L (98-107); Estimated CRCL calculation 18 ml/min; Estimated Glomerular Filt Rate 26; Glucose 135 mg/dL (65-105); Sodium 132 mmol/L (137-145)
[2020-06-11 16:21] LABS: INR 1.3
[2020-06-11 16:22] LABS: Partial Thromboplastin Time 22.6 SECONDS (22.3-36.8)
--- NOTE | 2020-06-11 16:27 | ED.GENADULT ---
HPI - General Adult General Chief complaint: Abdominal Pain Stated complaint: sob, sent by home health Time Seen by Provider: 06/11/20 15:22 History of Present Illness HPI narrative: Patient is a 79-year-old female who presents to the ER from home at the recommendation of home health. They feel patient may have a bowel obstruction. Patient had a bowel movement today but had not had one in the previous 4 days. Additionally she is recently had her Lasix increased because they thought her edema is worse than typical. Patient's daughter feels as if the edema is no better no worse. Patient is having no shortness of breath or orthopnea. No chest pain. She is without fevers or chills or sweats. Related Data Home Medications Medication Instructions Recorded Confirmed albuterol sulfate 90 mcg/actuation 1 puff INHALATION Q4H PRN 05/09/19 05/05/20 aerosol inhaler aspirin 81 mg tablet,delayed 81 mg PO DAILY 05/09/19 05/05/20 release atorvastatin 40 mg tablet 40 mg PO DAILY 05/09/19 05/05/20 bimatoprost 0.01 % eye drops 1 drop EACH EYE QPM 05/09/19 05/05/20 calcium carbonate 500 mg calcium 500 mg PO DAILY 05/09/19 05/05/20 (1,250 mg) tablet cholecalciferol (vitamin D3) 125 5,000 unit PO DAILY 05/09/19 05/05/20 mcg (5,000 unit) capsule fluticasone 250 mcg-salmeterol 50 1 inhalation INHALATION BID 05/09/19 05/05/20 mcg/dose blistr powdr for inhalation folic acid 400 mcg tablet 1 mg PO DAILY 05/09/19 05/05/20 ipratropium 0.5 mg-albuterol 3 mg 3 ml INHALATION 6XD PRN ml 05/09/19 05/05/20 (2.5 mg base)/3 mL nebulization soln isosorbide mononitrate 60 mg 60 mg PO DAILY 05/09/19 05/05/20 tablet,extended release 24 hr montelukast 10 mg tablet 10 mg PO DAILY 05/09/19 05/05/20 ranolazine 1,000 mg 1,000 mg PO Q12H 05/09/19 05/05/20 tablet,extended release,12 hr umeclidinium 62.5 mcg/actuation 1 inhalation INHALATION DAILY 05/09/19 05/05/20 blister powder for inhalation brimonidine 0.1 % eye drops 1 drop EACH EYE Q12H ml 05/20/19 05/05/20 clopidogrel [Plavix] 75 mg PO DAILY 05/05/20 05/05/20 pantoprazole [Protonix] 20 mg PO QAM 05/05/20 05/05/20 polyethylene glycol 3350 [Miralax] 17 g PO DAILY 05/05/20 05/05/20 Allergies Allergy/AdvReac Type Severity Reaction Status Date / Time finasteride Allergy Unknown Unknown Verified 05/17/20 14:19 morphine Allergy Unknown Itching Verified 05/17/20 14:19 nifedipine Allergy Unknown Unknown Verified 05/17/20 14:19 phenylephrine Allergy Unknown Unknown Verified 05/17/20 14:19 prednisone Allergy Unknown Hives Verified 05/17/20 14:19 erythromycin base AdvReac Unknown Nausea And Verified 05/17/20 14:19 Vomiting Review of Systems Review of Systems: All systems reviewed & are unremarkable except as noted in HPI and below Constitutional: Constitutional: Denies chills, Denies fever(s) and Denies weakness ENT: Denies nasal congestion and Denies sore throat Cardiovascular: Cardiovascular: Denies chest pain, Denies rapid heart rate and Denies radiating jaw, neck or arm pain Respiratory: Respiratory: Denies cough, Denies dyspnea and Denies wheezing Gastrointestinal: Gastrointestinal: Denies abdominal pain, Reports bloating, Denies nausea and Reports vomiting Genitourinary: Genitourinary: Denies nocturia and Denies dysuria [facility] Past Medical History Medical History (Updated 06/11/20 @ 18:16 by Logan Bess MD) Acute on chronic systolic (congestive) heart failure Breast pain, left CAD (coronary artery disease) Chronic obstructive pulmonary disease Hyperlipidemia Left breast mass Mitral regurgitation TD (obstructive sleep apnea) Pacemaker Surgical History Surgical History History of appendectomy History of cholecystectomy S/P CABG (coronary artery bypass graft) Status post transcatheter aortic valve replacement (TAVR) using bioprosthesis Family History Family History (Reviewed 05/05/20 @ 13:47 by Kalin
[2020-06-11 18:57] LABS: NT Pro B Type Natriuretic Pept 21900 PG/ML (5-100)
--- NOTE | 2020-06-11 22:02 | ADMGEN ---
This patient, Yola Interiano, was admitted to [facility] Surg Room 324-01. Patient/family oriented to hospital policies and general routines including ID bracelet, bed and alarms, visiting hours, pain management, procedures, bathroom and other care routines, personal items, smoking policy, room service/diet, and visiting hours. Information on how to activate the Rapid Response Team has been discussed. Patient/Family are encouraged to report perceived risks to care and to ask questions if they do not understand what they are told or what they should do.
--- NOTE | 2020-06-11 22:45 | PM.IMHP ---
H&P: HPI History of Present Illness Date/Time: 06/11/20 22:45 Chief Complaint: Brought to the hospital to rule out possible bowel obstruction Narrative: This is a pleasant 79-year-old female with known past medical history of chronic systolic heart failure, COPD, and chronic respiratory failure on 2 L of oxygen at all times at home who presented to the hospital today at the recommendation of her home health nurse. The patient recently had a pacemaker placed on the of last month at [facility]. Since then she has had her Lasix dose increased. The patient had not had a bowel movement for the past 4 days and she was referred to the hospital by her primary care doctor and home health nurse to be evaluated for possible bowel obstruction. The patient underwent CT abdomen pelvis in the ER which did not demonstrate any acute bowel obstruction. Routine labs were obtained which demonstrated slightly worsening renal function of 1.90. It appears that her baseline creatinine is around 1.4. She reports that over the past 2 days she has had self-limiting episodes of nausea vomiting in the morning which she relates to her new medications. The patient has noticed improvement of her peripheral swelling. The patient denies any significant symptoms tonight and denies any recent shortness of breath, chest pain, palpitations, fevers, chills, abdominal pain, dysuria, hematuria, diarrhea, or worsening lower extremity edema. She also denies any focal neurological deficits. The patient was started on light IV fluids and place in observation status for further care. Review of Systems Review of Systems: All systems reviewed & are unremarkable except as noted in HPI and below PMFSH Past Medical History Medical History (Updated 06/12/20 @ 19:30 by Feroz Tillman MD) Acute on chronic systolic (congestive) heart failure Breast pain, left CAD (coronary artery disease) Chronic obstructive pulmonary disease Glaucoma Hyperlipidemia Left breast mass Mitral regurgitation TD (obstructive sleep apnea) Pacemaker Surgical History Surgical History History of appendectomy History of cholecystectomy S/P CABG (coronary artery bypass graft) Status post transcatheter aortic valve replacement (TAVR) using bioprosthesis Family History Family History Mother Hypertension Family history of Alzheimer's disease Sibling Hypertension Asthma Father Family history of lung cancer Social History Social History Smoking packs per day: 1 Smoking cigarettes per day: 20.0 Years smoked: 31 Smoking pack-years: 31.00 Smoking status: Former smoker Tobacco type: cigarettes Second hand tobacco smoke exposure: Yes Smoking end date: 03/12/94 Alcohol intake: current Drinks per week: 1 Substance use: never Substance use type: does not use Gender identity (if verbalized by the patient): Female Spiritual care concerns: Yes Meds Home Medications and Allergies Home Medications Medication Instructions Recorded Confirmed Type albuterol sulfate 90 mcg/actuation 1 puff INHALATION Q6H PRN 05/09/19 06/11/20 History aerosol inhaler aspirin 81 mg tablet,delayed 81 mg PO DAILY 05/09/19 06/11/20 History release atorvastatin 40 mg tablet 40 mg PO DAILY 05/09/19 06/11/20 History bimatoprost 0.01 % eye drops 1 drop EACH EYE QPM 05/09/19 06/11/20 History calcium carbonate 500 mg calcium 500 mg PO DAILY 05/09/19 06/11/20 History (1,250 mg) tablet cholecalciferol (vitamin D3) 125 5,000 unit PO DAILY 05/09/19 06/11/20 History mcg (5,000 unit) capsule fluticasone 250 mcg-salmeterol 50 1 inhalation INHALATION BID 05/09/19 06/11/20 History mcg/dose blistr powdr for inhalation ipratropium 0.5 mg-albuterol 3 mg 3 ml INHALATION Q6H PRN ml 05/09/19 06/11/20 History
[2020-06-11] MEDS: LACTATED RINGERS 1,000 ML 80 ML IV CONT (23:54)
[2020-06-12] VITALS: BP 111/57; PULSE 79; RESP 20; TEMP 37; O2SAT 100
[2020-06-12] MEDS: ONDANSETRON INJ 4 MG/2 ML VIAL IV PUSH (05:39)
[2020-06-12 06:29] LABS: Basophils Absolute Auto 0.1 K/mm3 (0.0-0.1); Basophils Percent Auto 0.5 % (0.2-1.2); Eosinophils Absolute Auto 0.1 K/mm3 (0-0.3); Eosinophils Percent Auto 0.5 % (0-4.4); Hematocrit 30.5 % (37.0-47.0); Hemoglobin 9.4 g/dL (12.0-15.0); Immature Granulocyte Absolute 0.13 K/mm3 (0.00-0.031); Immature Granulocyte Percent A 0.9 % (0-0.5); Lymphocytes Absolute Auto 2.36 K/mm3 (0.9-3.2); Lymphocytes Percent Auto 16.2 % (18.3-44.2); Mean Corpuscular HGB Conc 30.8 g/dl (32-36); Mean Corpuscular Hemoglobin 25.2 pg (26-34); Mean Corpuscular Volume 81.8 fl (80-100); Mean Platelet Volume 11.5 fl (7.4-10.4); Monocytes Absolute Auto 1.7 K/mm3 (0.1-0.6); Monocytes Percent Auto 11.4 % (2.6-8.5); Neutrophils Absolute Auto 10.3 K/mm3 (1.3-6.7); Neutrophils Percent Auto 70.5 % (45.5-73.1); Platelet Count Result 257 k/mm3 (150-375); Red Blood Count 3.73 M/mm3 (4.2-5.4); Red Cell Distribution Width 15.4 % (11.5-14.5); White Blood Count 14.6 K/mm3 (4.5-10.0)
[2020-06-12 06:49] LABS: Anion Gap 12 mmol/L (8-16); Blood Urea Nitrogen 33 mg/dL (7-17); Carbon Dioxide 20 mmol/L (22-30); Chloride 99 mmol/L (98-107); Estimated CRCL calculation 18 ml/min; Estimated Glomerular Filt Rate 26; Glucose 114 mg/dL (65-105); Magnesium 1.8 mg/dL (1.6-2.3); Potassium 4.8 mmol/L (3.4-5.0); Sodium 131 mmol/L (137-145)
[2020-06-12 07:52] VITALS: PULSE 84; RESP 18; O2SAT 96
[2020-06-12 08:03] VITALS: PULSE 86; RESP 18; O2SAT 94
[2020-06-12] MEDS: ASPIRIN 81 MG ENTERIC TABLET PO (09:56)
[2020-06-12] MEDS: PANTOPRAZOLE 40 MG TABLET PO (09:56)
[2020-06-12] MEDS: CLOPIDOGREL BISULFATE 75 MG TABLET PO (09:57)
[2020-06-12] MEDS: ISOSORBIDE MONONITRATE 60 MG TAB.ER.24H PO (09:57)
[2020-06-12] MEDS: MONTELUKAST SODIUM 10 MG TABLET PO (09:57)
[2020-06-12] MEDS: carvediloL 6.25 MG TABLET PO (09:57)
[2020-06-12] MEDS: ATORVASTATIN 40 MG TABLET PO (09:58)
[2020-06-12] MEDS: polyethylene glycoL 3350 17 GM POWD.PACK PO (09:58)
[2020-06-12] MEDS: BRIMONIDINE TARTRATE 0.1% 5 ML OPHTH DROPS 1 DROP EACH EYE (09:58)
[2020-06-12 11:55] VITALS: PULSE 68
[2020-06-12] MEDS: DIGOXIN TAB 125 MCG TABLET PO (11:55)
--- NOTE | 2020-06-12 14:35 | PM.DS ---
DS: Admitting Diagnosis Admitting Diagnosis Admitting Diagnosis: Acute kidney injury DS: Discharge Diagnosis Discharge Diagnosis (1) DAVIDSON (acute kidney injury): Code(s): N17.9 - Acute kidney failure, unspecified Status: Acute Assessment and Plan: Baseline creatinine appears to be 1.1. Creatinine was 1.9 upon presentation. This acute worsening was felt to be secondary to decreased PO intake in combination with She has been placed in observation status. Acute worsening renal function is likely secondary to recent Lasix use with recent increase in dose. She received IV fluids. Renal US showed no significant abnormalities and no evidence of hydronephrosis. She has a follow up appointment with her primary care provider on 06/14/20, therefore Lasix and lisinopril placed on hold until further evaluation at that appointment. (2) Chronic anemia: Code(s): D64.9 - Anemia, unspecified Status: Acute Assessment and Plan: Hemoglobin and hematocrit remained consistent with review of prior labs. No evidence of blood loss. (3) Chronic obstructive pulmonary disease: Code(s): J44.9 - Chronic obstructive pulmonary disease, unspecified Status: Chronic Assessment and Plan: Not in acute exacerbation. Oxygen saturations remained stable on her chronic 2 L oxygen via nasal cannula. Continue bronchodilators. (4) CAD (coronary artery disease): Code(s): I25.10 - Atherosclerotic heart disease of [place] coronary artery without angina pectoris Status: Chronic Assessment and Plan: She was asymptomatic. Continue Plavix, Coreg, aspirin, and Ranexa. She has cardiology follow up scheduled. (5) Congestive heart failure: Qualifiers: Heart failure chronicity: acute on chronic Heart failure type: unspecified Qualified Code(s): I50.9 - Heart failure, unspecified Code(s): I50.9 - Heart failure, unspecified Status: Chronic Assessment and Plan: Well compensated. She was euvolemic. Lasix was held as above. Continue carvedilol. (6) Constipation: Code(s): K59.00 - Constipation, unspecified Status: Acute Assessment and Plan: She came in with concerns of bowel obstruction as she had not had a bowel movement in 4 days. She did have a bowel movement prior to presenting to the ED. Denied abdominal cramping or bloating. She was passing flatus and tolerating her diet. Recommended stool softeners. (7) Leukocytosis: Code(s): D72.829 - Elevated white blood cell count, unspecified Status: Acute Assessment and Plan: WBC 10.0 at presentation and increased to 14.6 on 06/12/20. Review of prior labs demonstrates chronically elevated WBC. Neutrophils wnl with low lymphocytes. She did not have any signs or symptoms to suggest underlying infection. Further follow up with PCP. DS: Summary Hospital Course Reason for hospitalization: DAVIDSON Hospital Course: Date of admission: 06/11/2020 Date of discharge: 06/12/2020 Yola Interiano is a 79 year old female with a history of congestive heart failure, CAD, recent pacemaker placement on 05/30, hyperlipidemia, and TD who presented to the emergency department on 06/11/20 at the direction of her home healthcare nurse for concerns of possible bowel obstruction. She had not had a bowel movement in 4 days but then did have a bowel movement prior to presentation. She spoke with her primary care provider who did not advise that she seek emergency care and scheduled a follow up appointment for 06/14/20. However, her home healthcare nurse and her daughter still felt she should proceed to ED for further evaluation. Upon presentation to the emergency department, her BP was slightly decreased at 82/62 with additional vital signs stable, H&H slightly decreased, sodium 132, BUN 30, Cr 1.9, additional electrolytes stable. CT a/p did not demonstrate any evidence of bowel obstruction. Given her slightly wo
== END 2020-06-12 15:25 | disposition home health service (06) ==
LOC: ANHED 18:16 → ANH3MEDSUR 19:41
PROVIDERS: Family Medicine; Admitting Provider Family Medicine; Emergency Provider Emergency Medicine; PCP Family Medicine; Visit Provider Internal Medicine
DX: N17.9 Acute kidney failure, unspecified (principal); D64.9 Anemia, unspecified; D72.829 Elevated white blood cell count, unspecified; E78.5 Hyperlipidemia, unspecified; I25.10 Atherosclerotic heart disease of native coronary artery without angina pectoris; I50.9 Heart failure, unspecified; J44.9 Chronic obstructive pulmonary disease, unspecified; K21.9 Gastro-esophageal reflux disease without esophagitis; K59.00 Constipation, unspecified; Z95.0 Presence of cardiac pacemaker
CPT/HCPCS: 36415; 74176; 76775; 80048; 83735; 83880; 85025; 85610; 85730; 96374; 99285; A9270; G0378; J2405; J7120

== ENCOUNTER 2020-06-14 11:18 | Outpatient (CLI) | payer MEDICARE, SELFPAY ==
--- NOTE | ~2020-06-14 | XR_ITS ---
EXAMINATION: XR chest 2V EXAM DATE: 06/14/2020 11:45 INDICATION: Shortness of breath. Recent pacemaker placement. TECHNIQUE: Frontal and lateral projections of the chest obtained and reviewed. Comparison is made to prior examination from 05/04/2020. FINDINGS: There is a different pacemaker than the one image in April, 4 leads are identified but may be residual from the previous one. Sternotomy wires are present without findings to suggest garcia al dehiscence. Aortic valve replacement/stent. No confluent consolidation, pneumothorax or pleural ef fusion suspected. There are cholecystectomy clips. There are mild bony degenerative changes. Mild car diomegaly. IMPRESSION: 1. Mild cardiomegaly. 2. No acute cardiopulmonary findings. Reviewed, dictated and finalized at location A.
--- NOTE | ~2020-06-14 | CT_ITS ---
EXAMINATION: CT brain wo con DATE: 06/14/2020 11:50 INDICATION: Head injury. TECHNIQUE: Computed tomography (CT) of the head was performed without intravenous contrast. The mA wa s adjusted according to patient size. Iterative reconstruction technique was employed. The dose-lengt h product was 605.33 mGy-cm. COMPARISON: None FINDINGS: There is diffuse brain volume loss with prominent subarachnoid space overlying the brain. T here is no intracranial hemorrhage, acute infarction, or abnormal intracranial mass lesion. The ventr icles are normal in size. The paranasal sinuses are clear. There are likely changes of ocular lens re placement surgeries. The mastoid air cells are normal. IMPRESSION: 1. Normal aging brain. Reviewed, dictated and finalized at location A. IMPRESSION: 1. Normal aging brain.
[2020-06-14 12:47] LABS: Basophils Percent Auto 0.1 % (0.2-1.2); Eosinophils Percent Auto 0.1 % (0-4.4); Hematocrit 28.2 % (37.0-47.0); Hemoglobin 8.8 g/dL (12.0-15.0); Immature Granulocyte Absolute 0.17 K/mm3 (0.00-0.031); Immature Granulocyte Percent A 1.2 % (0-0.5); Lymphocytes Absolute Auto 1.42 K/mm3 (0.9-3.2); Lymphocytes Percent Auto 10.3 % (18.3-44.2); Mean Corpuscular HGB Conc 31.2 g/dl (32-36); Mean Corpuscular Volume 80.1 fl (80-100); Mean Platelet Volume 11.6 fl (7.4-10.4); Neutrophils Absolute Auto 11.2 K/mm3 (1.3-6.7); Neutrophils Percent Auto 81.3 % (45.5-73.1); Nucleated Red Blood Cells Perc 0.1 % (0.0-0.2); Platelet Count Result 254 k/mm3 (150-375); Red Blood Count 3.52 M/mm3 (4.2-5.4); Red Cell Distribution Width 15.9 % (11.5-14.5); White Blood Count 13.8 K/mm3 (4.5-10.0)
[2020-06-14 12:54] LABS: Add Urine Microscopic? YES; Appearance Urine Cloudy (Clear); Bacteria Urine Trace /hpf; Bilirubin Urine Negative (Negative); Blood Urine Negative (Negative); Color Urine Amber (Yellow); Glucose Urine UA Negative (Negative); Hyaline Casts Urine 50+ /lpf; Ketones Urine Negative (Negative); Leukocyte Esterase Ur Negative LEU/UL (NEGATIVE); Mucus Urine Rare /lpf; Nitrate Urine Negative (Negative); Protein Urine 1+ mg/dL (Negative); RBC Urine 0-2 /hpf (0-2); Specific Grav Ur 1.016 (1.001-1.035); Squamous Epithelial Cell Urine Rare /hpf (Few); Urobilinogen Urine Negative mg/dL (<2.0); WBC Urine 0-3 /hpf (0-3)
[2020-06-14 13:00] LABS: Alanine Aminotransferase 511 U/L (4-35); Albumin Level 3.9 g/dL (3.5-5.1); Alkaline Phosphatase 84 U/L (38-126); Anion Gap 9 mmol/L (8-16); Aspartate Amino Transferase 555 U/L (14-36); Bilirubin,Total 1.1 mg/dL (0.2-1.3); Blood Urea Nitrogen 56 mg/dL (7-17); Calcium 8.8 mg/dL (8.4-10.2); Carbon Dioxide 26 mmol/L (22-30); Chloride 92 mmol/L (98-107); Estimated Glomerular Filt Rate 15; Glucose 118 mg/dL (65-105); Potassium 5.1 mmol/L (3.4-5.0); Sodium 127 mmol/L (137-145)
[2020-06-14 13:06] LABS: NT Pro B Type Natriuretic Pept 19000 PG/ML (5-100)
== END 2020-06-14 11:19 | disposition home or self-care (01) ==
PROVIDERS: PCP Family Medicine; Visit Provider Physician Assistant
DX: D72.829 Elevated white blood cell count, unspecified (principal); N17.9 Acute kidney failure, unspecified; I11.9 Hypertensive heart disease without heart failure; I50.23 Acute on chronic systolic (congestive) heart failure; R40.20 Unspecified coma; R06.02 Shortness of breath; R32 Unspecified urinary incontinence; R47.9 Unspecified speech disturbances
CPT/HCPCS: 36415; 70450; 71046; 80053; 81001; 83880; 85025; 87086; 87088

== ENCOUNTER 2020-06-14 15:17 | Emergency (ER) | payer MEDICARE, SELFPAY ==
[2020-06-14 15:14] VITALS: O2SAT 80
--- NOTE | 2020-06-14 17:11 | PC.NURSE ---
Called [employer]- Palomo released body to home [facility] states pt is a candidate for donation and she can be released to [facility] [place] home call-no answer- left message
--- NOTE | 2020-06-14 17:30 | ED.CPR ---
HPI - CPR General Chief Complaint: Cardiac Arrest/CPR Stated Complaint: code Time Seen by Provider: 06/14/20 15:33 Source: EMS Mode of arrival: EMS Limitations: clinical condition History of Present Illness HPI narrative: 79-year-old female Presents via EMS with CPR actively in progress with Micha and [id number]-hieek-zuvk ventilation Reportedly she had recently signed herself out of the hospital and then had a doctor's appointment earlier today where she was advised that she is going to need dialysis After getting home she apparently laid down the became unresponsive EMS reported that she seems to them to be alternating between PEA and V. tach, responsive and not responsive, but did continue to have some gasping agonal sounding respirations Related Data Home Medications Medication Instructions Recorded Confirmed albuterol sulfate 90 mcg/actuation 1 puff INHALATION Q6H PRN 05/09/19 06/14/20 aerosol inhaler aspirin 81 mg tablet,delayed 81 mg PO DAILY 05/09/19 06/14/20 release atorvastatin 40 mg tablet 40 mg PO DAILY 05/09/19 06/14/20 bimatoprost 0.01 % eye drops 1 drop EACH EYE QPM 05/09/19 06/14/20 calcium carbonate 500 mg calcium 500 mg PO DAILY 05/09/19 06/14/20 (1,250 mg) tablet cholecalciferol (vitamin D3) 125 5,000 unit PO DAILY 05/09/19 06/14/20 mcg (5,000 unit) capsule fluticasone 250 mcg-salmeterol 50 1 inhalation INHALATION BID 05/09/19 06/14/20 mcg/dose blistr powdr for inhalation ipratropium 0.5 mg-albuterol 3 mg 3 ml INHALATION Q6H PRN ml 05/09/19 06/14/20 (2.5 mg base)/3 mL nebulization soln isosorbide mononitrate 60 mg 60 mg PO DAILY 05/09/19 06/14/20 tablet,extended release 24 hr montelukast 10 mg tablet 10 mg PO DAILY 05/09/19 06/14/20 ranolazine 1,000 mg 1,000 mg PO Q12H 05/09/19 06/14/20 tablet,extended release,12 hr umeclidinium 62.5 mcg/actuation 1 inhalation INHALATION DAILY 05/09/19 06/14/20 blister powder for inhalation brimonidine 0.1 % eye drops 1 drop EACH EYE Q12H ml 05/20/19 06/14/20 clopidogrel [Plavix] 75 mg PO DAILY 05/05/20 06/14/20 pantoprazole [Protonix] 40 mg PO QAM 05/05/20 06/14/20 polyethylene glycol 3350 [Miralax] 17 g PO DAILY 05/05/20 06/14/20 latanoprost 1 drp EACH EYE DAILY 06/11/20 06/14/20 lisinopril 5 mg PO DAILY 06/11/20 06/14/20 digoxin 125 mcg (0.125 mg) tablet 125 mcg PO DAILY tablet 06/14/20 06/14/20 Allergies Allergy/AdvReac Type Severity Reaction Status Date / Time finasteride Allergy Unknown Unknown Verified 06/14/20 09:48 morphine Allergy Unknown Itching Verified 06/14/20 09:48 nifedipine Allergy Unknown Unknown Verified 06/14/20 09:48 phenylephrine Allergy Unknown Unknown Verified 06/14/20 09:48 prednisone Allergy Unknown Hives Verified 06/14/20 09:48 erythromycin base AdvReac Unknown Nausea And Verified 06/14/20 09:48 Vomiting Review of Systems Review of Systems: ROS unobtainable: Yes unobtainable due to medical condition [facility] Past Medical History Medical History Acute on chronic systolic (congestive) heart failure Breast pain, left CAD (coronary artery disease) Chronic obstructive pulmonary disease Glaucoma Hyperlipidemia Left breast mass Mitral regurgitation TD (obstructive sleep apnea) Pacemaker Surgical History Surgical History History of appendectomy History of cholecystectomy S/P CABG (coronary artery bypass graft) Status post transcatheter aortic valve replacement (TAVR) using bioprosthesis Family History Family History Mother Hypertension Family history of Alzheimer's disease Sibling Hypertension Asthma Father Family history of lung cancer Social History Social History Smoking packs per day: 1 Smoking cigarettes per day: 20.0 Years smoked: 31 Smoking pack-years: 31.00 Smoki
== END 2020-06-14 19:27 | disposition expired ==
PROVIDERS: Emergency Provider Emergency Medicine; PCP Family Medicine
DX: I46.9 Cardiac arrest, cause unspecified (principal); I50.23 Acute on chronic systolic (congestive) heart failure; I25.10 Atherosclerotic heart disease of native coronary artery without angina pectoris; J44.9 Chronic obstructive pulmonary disease, unspecified; H40.9 Unspecified glaucoma; E78.5 Hyperlipidemia, unspecified; G47.33 Obstructive sleep apnea (adult) (pediatric); Z95.0 Presence of cardiac pacemaker; Z95.1 Presence of aortocoronary bypass graft; Z95.2 Presence of prosthetic heart valve; Z79.82 Long term (current) use of aspirin; Z87.891 Personal history of nicotine dependence; Z77.22 Contact with and (suspected) exposure to environmental tobacco smoke (acute) (chronic)
CPT/HCPCS: 31500; 36415; 36556; 70450; 71046; 80053; 81001; 83880; 85025; 87086; 87088; 99285; C1751; J0153; J0171; J0282; J7030; J7040; J7060